=== PATIENT | male | born 1940 | race Caucasian/White ===

== ENCOUNTER 2016-11-15 13:52 | Emergency (ER) | payer MEDICARE, BC ==
[~2016-11-15] VITALS: Ht 175.3 cm; Wt 73.6 kg
[2016-11-15 14:14] VITALS: BP 161/74
[2016-11-15] MEDS ORDERED: OXYcodone/APAP 5/325MG TABLET PO ONE (14:30)
[2016-11-15] MEDS ORDERED: KETOROLAC 30 MG/1 ML IM ONE (14:30)
[2016-11-15] MEDS ORDERED: KETOROLAC 30 MG/1 ML ONE (14:38)
[2016-11-15] MEDS ORDERED: OXYcodone/APAP 5/325MG TABLET ONE (14:38)
== END 2016-11-15 16:24 | disposition home or self-care (01) ==
LOC: ED 16:18
DX: M25.462 Effusion, left knee (principal)
CPT/HCPCS: 73564; 93971; 96372; 99284; J1885